=== PATIENT | female | born 1970 | race African-American/Black ===

== ENCOUNTER 2017-03-18 22:09 | Emergency (ER) | payer OTHER ==
[~2017-03-18] VITALS: Ht 162.6 cm; Wt 136.0 kg
[~2017-03-18 22:09] MED LIST: BENA20TA3 PO
[2017-03-19] MEDS ORDERED: LABETALOL HCL 200MG TABLET PO STA (00:41)
[2017-03-19] MEDS ORDERED: HYDROCODONE/ACETAMINOPHEN 10/325MG TABLET PO ONE (00:45)
[2017-03-19] MEDS ORDERED: KETOROLAC 60MG/2ML VIAL IM ONE (00:45)
[2017-03-19] MEDS ORDERED: LABETALOL HCL 200MG TABLET PO SCH (02:45)
[2017-03-19] MEDS ORDERED: HYDROCODONE/ACETAMINOPHEN 10/325MG TABLET PO SCH (02:45)
[2017-03-19] MEDS ORDERED: LABETALOL HCL 100MG TABLET PO SCH (03:04)
[2017-03-19 05:31] VITALS: BP 137/86
== END 2017-03-19 05:33 | disposition home or self-care (01) ==
LOC: ER 22:11
DX: S83.91XA Sprain of unspecified site of right knee, initial encounter (principal); Y92.89 Other specified places as the place of occurrence of the external cause; I10 Essential (primary) hypertension; Y93.89 Activity, other specified; V48.4XXA Person boarding or alighting a car injured in noncollision transport accident, initial encounter
CPT/HCPCS: 73562; 96372; 99284; J1885; Z7610

== ENCOUNTER 2017-07-26 19:44 | Emergency (ER) | payer MEDICAID, OTHER ==
[~2017-07-26] VITALS: Ht 162.6 cm; Wt 128.0 kg
[2017-07-26] MEDS ORDERED: SODIUM CHLORIDE 0.9% 1,000 ML IV ONE (20:12)
[2017-07-26 20:57] LABS: PROTHROMBIN TIME 10.6 sec (9.4-11.6)
[2017-07-26 21:01] LABS: BASOPHILS % 0.8 % (0.0-2.0); EOSINOPHILS % 2.7 % (0.0-5.0); HEMATOCRIT. 36.3 % (36.0-48.0); HEMOGLOBIN. 12.2 g/dL (12.0-16.0); LYMPHOCYTES % 40.7 % (20.0-50.0); MEAN CORPUSCULAR HEMOGLOBIN 31.9 pg (28.0-32.0); MEAN CORPUSCULAR VOLUME 94.6 fL (81.0-99.0); MEAN PLATELET VOLUME 8.5 fl (7.4-10.4); MONOCYTES % 8.1 % (2.0-8.0); NEUTROPHILS % 47.7 % (40.0-76.0); PLATELET 296 x1000/uL (130-400); RED BLOOD CELL COUNT 3.84 mill/uL (4.2-5.4); RED CELL DISTRIBUTION WIDTH 14.9 % (11.6-14.6)
[2017-07-26 21:04] LABS: CARBON DIOXIDE 29 mEq/L (21-32); CHLORIDE 105 mEq/L (98-107)
[2017-07-26 21:39] LABS: B-HCG QUANTITATIVE 2003 mIU/mL (<3)
[2017-07-26 23:00] LABS: CLARITY URINE TURBID (CLEAR); COLOR URINE RED (YELLOW); KETONES URINE NEGATIVE (NEGATIVE); LEUKOCYTE ESTERASE URINE 1+ (NEGATIVE); NITRITE URINE NEGATIVE (NEGATIVE); OCCULT BLOOD URINE 3+ (NEGATIVE); PROTEIN URINE 2+ (NEGATIVE); SPECIFIC GRAVITY URINE 1.027 (1.005-1.030); UROBILINOGEN URINE 0.2 E.U./dL (0.2-1.0)
[2017-07-26 23:13] LABS: *AMPHETAMINES SCREEN URINE NEGATIVE (NEGATIVE); *BARBITURATES SCREEN URINE NEGATIVE (NEGATIVE); *BENZODIAZEPINES SCREEN URINE NEGATIVE (NEGATIVE); *COCAINE SCREEN URINE NEGATIVE (NEGATIVE); CANNABINOID URINE SCREEN NEGATIVE (NEGATIVE); METHADONE URINE SCREEN NEGATIVE (NEGATIVE); OPIATES URINE SCREEN NEGATIVE (NEGATIVE); PHENCYCLIDINE URINE SCREEN NEGATIVE (NEGATIVE)
[2017-07-26] MEDS ORDERED: ACETAMINOPHEN 325MG TABLET PO ONE (23:15)
[2017-07-27 00:20] VITALS: BP 138/81
== END 2017-07-27 01:10 | disposition home or self-care (01) ==
LOC: ER 20:37
DX: O03.9 Complete or unspecified spontaneous abortion without complication (principal); O99.331 Smoking (tobacco) complicating pregnancy, first trimester; F17.200 Nicotine dependence, unspecified, uncomplicated; O16.1 Unspecified maternal hypertension, first trimester; I10 Essential (primary) hypertension; Z3A.11 11 weeks gestation of pregnancy
CPT/HCPCS: 36415; 76801; 76817; 80053; 80305; 81001; 84702; 85025; 85610; 86850; 86900; 86901; 88305; 96360; 96361; 99285; J7030; Z7610

== ENCOUNTER 2019-07-16 19:41 | Emergency (ER) | payer MEDICAID, OTHER ==
[~2019-07-16] VITALS: Ht 167.6 cm; Wt 105.0 kg
[~2019-07-16 19:41] MED LIST changes: +BENA20TA10 PO; -BENA20TA3 PO
[2019-07-16] MEDS ORDERED: BACITRACIN ZINC OINT UDPKT TOP ONE (20:30)
[2019-07-16] MEDS ORDERED: MORPHINE SULFATE 10 MG/ML CPJ IM ONE (20:30)
[2019-07-16] MEDS ORDERED: KETOROLAC 30MG/ML VIAL IM ONE (20:30)
[2019-07-16 22:50] VITALS: BP 145/91
== END 2019-07-16 22:40 | disposition home or self-care (01) ==
LOC: ER 19:41
DX: S93.401A Sprain of unspecified ligament of right ankle, initial encounter (principal); V49.49XA Driver injured in collision with other motor vehicles in traffic accident, initial encounter; Y93.89 Activity, other specified; Y92.89 Other specified places as the place of occurrence of the external cause; Y99.8 Other external cause status; I10 Essential (primary) hypertension
CPT/HCPCS: 29515; 73600; 96372; 99283; J1885; J2270